=== PATIENT | female | born 1980 | race American Indian/Alaskan Native ===

== ENCOUNTER 2018-05-05 00:59 | Emergency (ER) | payer OTHER ==
[2018-05-05 02:36] LABS: Basophils # (Auto) 0.1 K/mm3 (0.0-0.1); Basophils % (Auto) 0.9 % (0.0-1.8); Eosinophils # (Auto) 0.1 K/mm3 (0.0-0.4); Eosinophils % (Auto) 1.5 % (0.0-4.3); Hematocrit 34.8 % (30.3-42.9); Hemoglobin 11.8 gm/dl (10.1-14.3); Lymphocytes # (Auto) 3.8 K/mm3 (1.2-5.4); Lymphocytes % (Auto) 38.7 % (13.4-35.0); Mean Corpuscular HGB Conc 34 % (30-34); Mean Corpuscular Hemoglobin 34 pg (28-32); Mean Corpuscular Volume 99 fl (79-97); Monocytes % (Auto) 9.9 % (0.0-7.3); Platelet Count 275 K/mm3 (140-440); Red Blood Count 3.52 M/mm3 (3.65-5.03); Red Cell Distribution Width 13.4 % (13.2-15.2)
[2018-05-05] MEDS ORDERED: MORPHINE IV ONE (03:33)
[2018-05-05] MEDS ORDERED: BOOSTRIX IM ONE (03:34)
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
[2018-05-05 04:00] LABS: BUN/Creatinine Ratio 14; Blood Urea Nitrogen 13 mg/dL (7-17); Calcium 9.4 mg/dL (8.4-10.2); Hemolysis Index 4
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
[2018-05-05] MEDS ORDERED: NACL 0.9% 1000 ML 1,000 ML IV ONE (04:50)
[2018-05-05] MEDS ORDERED: DIPRIVAN 10 MG/ML IV ONE (04:50)
[2018-05-05] MEDS ORDERED: KETAMINE HCL IV ONE (04:50)
--- NOTE | 2018-05-05 06:10 | XRay Report ---
FINAL REPORT PROCEDURE: XR MANDIBLE < 4V TECHNIQUE: Mandible complete, minimum of 4 views, including PA, lateral, [place], and both oblique projections. HISTORY: jaw dislocation reduction COMPARISON: No prior studies are available for comparison. FINDINGS: Bone mineralization: Normal. Fractures: None. Paranasal sinuses: Clear. IMPRESSION: Normal Examination.
[2018-05-05 07:00] VITALS: BP 114/69
[2018-05-05] MEDS ORDERED: QUELICIN ONE (18:00)
[2018-05-05] MEDS ORDERED: AMIDATE IV ONE (18:00)
== END 2018-05-05 07:12 | disposition home or self-care (01) ==
LOC: ED 00:59
DX: S03.00XA Dislocation of jaw, unspecified side, initial encounter (principal); S50.311A Abrasion of right elbow, initial encounter; S80.211A Abrasion, right knee, initial encounter; R51 Headache; F17.200 Nicotine dependence, unspecified, uncomplicated; Y04.0XXA Assault by unarmed brawl or fight, initial encounter; Y93.89 Activity, other specified; Y92.89 Other specified places as the place of occurrence of the external cause; Y99.8 Other external cause status
CPT/HCPCS: 21480; 36415; 70100; 70450; 70486; 72125; 80048; 84703; 85025; 90471; 90715; 96374; 99284; J0330; J2270; J2704; J7030; 96361